=== PATIENT | female | born 1975 | race Caucasian/White ===

== ENCOUNTER 2018-04-20 23:21 | Emergency (ER) | payer SELFPAY ==
[2018-04-21 01:52] LABS: BUN/Creatinine Ratio 13; Blood Urea Nitrogen 8 mg/dL (7-17); Calcium 9.6 mg/dL (8.4-10.2); Hemolysis Index 2
[2018-04-21 01:54] LABS: Basophils # (Auto) 0.1 K/mm3 (0.0-0.1); Basophils % (Auto) 0.6 % (0.0-1.8); Eosinophils # (Auto) 0.8 K/mm3 (0.0-0.4); Eosinophils % (Auto) 7.8 % (0.0-4.3); Hematocrit 36.8 % (30.3-42.9); Hemoglobin 12.4 gm/dl (10.1-14.3); Lymphocytes # (Auto) 3.1 K/mm3 (1.2-5.4); Lymphocytes % (Auto) 30.1 % (13.4-35.0); Mean Corpuscular HGB Conc 34 % (30-34); Mean Corpuscular Hemoglobin 31 pg (28-32); Mean Corpuscular Volume 91 fl (79-97); Monocytes # (Auto) 0.6 K/mm3 (0.0-0.8); Monocytes % (Auto) 6.2 % (0.0-7.3); Platelet Count 240 K/mm3 (140-440); Red Blood Count 4.04 M/mm3 (3.65-5.03); Red Cell Distribution Width 13.2 % (13.2-15.2)
[2018-04-21 01:56] LABS: INR 0.95 (0.87-1.13); Partial Thromboplastin Time 28.3 Sec. (24.2-36.6); Thrombin Time 15.9 Sec. (15.1-19.6)
--- NOTE | 2018-04-21 02:32 | Cat Scan Report ---
FINAL REPORT PROCEDURE: CT HEAD/BRAIN WO CON TECHNIQUE: Computerized tomography of the head was performed without contrast material. HISTORY: neuro deficits < 6hrs or sx present upon awakening COMPARISON: No prior studies are available for comparison. FINDINGS: Skull and scalp: Normal. Paranasal sinuses: Normal. Ventricles and subarachnoid spaces: Normal. Cerebrum: No evidence of hemorrhage, acute infarction or mass . Cerebellum and brainstem: No evidence of hemorrhage, acute infarction or mass. Vasculature: Normal. Comments: None. IMPRESSION: Normal Examination
[2018-04-21] MEDS ORDERED: ASPIRIN PO ONE (04:12)
--- NOTE | 2018-04-21 06:10 | Emergency Department Report ---
ED General Adult HPI - General Chief complaint: Neuro Symptoms/Deficit Stated complaint: FACIAL NUMBNESS Time Seen by Provider: 04/21/18 06:07 Source: patient, EMS Mode of arrival: Stretcher Limitations: Language Barrier - History of Present Illness Initial comments: 43 year old female [place]-speaking who I have obtained a history from him in [place]. The patient states that she has had similar symptoms in the past. She admits to having problems with her teeth. According to the EMS report she was transferred for evaluation of weakness (generalized.). There is no mention of right facial twisting. The patient's chief complaint is "facial twisting" ( translated from [place]) for 3 hours. There is conflicting information on the patient's history on her triage report. There is information stating that she had weakness of her right upper extremity. The patient totally denies this. She states that her problem was strictly to twisting of her lips. She also states that she has pain in the molar area on the right and sometimes points to the left. She admits to having anxiety. She totally denies any sort of focal weakness or numbness. She simply states that her face was twisted or 3 hours. She states that she has pain in her right molar area. She is clear that this is problem that she has had more than once in the past. She states he's been admitted to the hospital for the same. She denies any headache. She denies any supplemental symptoms. She denies any facial numbness. I reviewed the EMS record. There is nothing related to facial twisting found. -: Gradual, hour(s) Location: face Radiation: non-radiation Quality: aching Consistency: constant Improves with: none Worsens with: none Associated Symptoms: denies other symptoms Treatments Prior to Arrival: none - Related Data Home Medications Medication Instructions Recorded Confirmed Last Taken Omeprazole [PriLOSEC] 40 mg PO QDAY 04/16/15 04/16/15 Unknown Oxycodone HCl/Acetaminophen 1 tab PO Q8H PRN 04/16/15 04/16/15 04/14/15 [Percocet 7.5/325 mg] Previous Rx's Medication Instructions Recorded Last Taken Type Ciprofloxacin HCl [Cipro] 500 mg PO Q12H #14 tab 08/13/14 Unknown Rx HYDROcodone/APAP 10-325 [Andrews 1 each PO Q6HR PRN #16 tablet 08/13/14 Unknown Rx 10-325 mg TAB] Ciprofloxacin HCl [Cipro] 500 mg PO Q12H #10 tab 11/16/14 Unknown Rx raNITIdine HCl [Ranitidine] 150 mg PO Q12H #60 tablet 11/16/14 Unknown Rx Famotidine [Pepcid] 20 mg PO BID #30 tablet 02/01/15 Unknown Rx HYDROcodone/APAP 5-325 [Andrews 1 each PO Q6HR PRN #14 tablet 02/01/15 Unknown Rx 5-325 mg TAB] Promethazine [Phenergan TAB] 25 mg PO Q6H PRN #20 tablet 02/01/15 Unknown Rx Ibuprofen [Motrin] 600 mg PO Q8H PRN #60 tablet 02/26/15 Unknown Rx Ondansetron [Zofran Odt] 4 mg PO Q6H #30 tab.rapdis 02/26/15 Unknown Rx Sulfamethoxazole/Trimethoprim 1 each PO BID #14 tablet 02/26/15 Unknown Rx [Bactrim Ds] traMADol [Ultram] 50 mg PO Q6HR PRN #20 tablet 02/26/15 Unknown Rx Ciprofloxacin HCl [Ciprofloxacin 500 mg PO Q12HR #20 tab 04/16/15 Unknown Rx TAB] Oxycodone HCl/Acetaminophen 1 each PO Q4-6H PRN #20 tablet 04/16/15 Unknown Rx [Percocet 10/325 mg] Promethazine [Phenergan TAB] 25 mg PO Q6HR PRN #10 tab 04/16/15 Unknown Rx Penicillin Vk [Veetids TAB] 250 mg PO QID #30 tablet 04/21/18 Unknown Rx Allergies Allergy/AdvReac Type Severity Reaction Status Date / Time Pork/Porcine Containing Allergy Hives Verified 04/16/15 10:35 Products ED Review of Systems ROS: Stated complaint: FACIAL NUMBNESS Other details as noted in HPI Constitutional: denies: chills, fever Eyes: denies: eye pain, eye discharge, vision change ENT: denies: ear pain, throat pain Respiratory: denies: cough, shortness of breath, wheezing Cardiovascular: denies: chest pain, palpitations Endocrine: no symptoms reported Gastrointestinal: denies: abdominal pain, nausea, diarrhea Genitourinary: denies: urgency, dysuria, discharge Musculoskeletal: denies: back pain, joint swelling, arthralgia Skin: denies: rash, lesions Neurological: as per HPI. denies: headache, weakness, numbness, paresthesias, confusion, abnormal gait, vertigo Psychiatric: denies: anxiety, depression Hematological/Lymphatic: denies: easy bleeding, easy bruising ED Past Medical Hx - Past Medical History Hx Hypertension: Yes Hx Kidney Stones: Yes Hx Asthma: Yes Additional medical history: heart murmur, diverticulitis, gall stones, kidney stones - Surgical History Hx Cholecystectomy: Yes Hx Appendectomy: Yes Additional Surgical History: hernia repair x 3. Cholecystectomy - Social History Smoking Status: Never Smoker Substance Use Type: None - Medications Home Medications: Home Medications Medication Instructions Recorded Confirmed Last Taken Type Ciprofloxacin HCl [Cipro] 500 mg PO Q12H #14 tab 08/13/14 Unknown Rx HYDROcodone/APAP 10-325 [Andrews 1 each PO Q6HR PRN #16 tablet 08/13/14 Unknown Rx 10-325 mg TAB] Ciprofloxacin HCl [Cipro] 500 mg PO Q12H #10 tab 11/16/14 Unknown Rx raNITIdine HCl [Ranitidine] 150 mg PO Q12H #60 tablet 11/16/14 Unknown Rx Famotidine [Pepcid] 20 mg PO BID #30 tablet 02/01/15 Unknown Rx HYDROcodone/APAP 5-325 [[place] 1 each PO Q6HR PRN #14 tablet 02/01/15 Unknown Rx 5-325 mg TAB] Promethazine [Phenergan TAB] 25 mg PO Q6H PRN #20 tablet 02/01/15 Unknown Rx Ibuprofen [Motrin] 600 mg PO Q8H PRN #60 tablet 02/26/15 Unknown Rx Ondansetron [Zofran Odt] 4 mg PO Q6H #30 tab.rapdis 02/26/15 Unknown Rx Sulfamethoxazole/Trimethoprim 1 each PO BID #14 tablet 02/26/15 Unknown Rx [Bactrim Ds] traMADol [Ultram] 50 mg PO Q6HR PRN #20 tablet 02/26/15 Unknown Rx Ciprofloxacin HCl [Ciprofloxacin 500 mg PO Q12HR #20 tab 04/16/15 Unknown Rx TAB] Omeprazole [PriLOSEC] 40 mg PO QDAY 04/16/15 04/16/15 Unknown History Oxycodone HCl/Acetaminophen 1 each PO Q4-6H PRN #20 tablet 04/16/15 Unknown Rx [Percocet 10/325 mg] Oxycodone HCl/Acetaminophen 1 tab PO Q8H PRN 04/16/15 04/16/15 04/14/15 History [Percocet 7.5/325 mg] Promethazine [Phenergan TAB] 25 mg PO Q6HR PRN #10 tab 04/16/15 Unknown Rx Penicillin Vk [Veetids TAB] 250 mg PO QID #30 tablet 04/21/18 Unknown Rx ED Physical Exam - General Limitations: Language Barrier General appearance: alert, in no apparent distress - Head Head exam: Present: atraumatic, normocephalic - Eye Eye exam: Present: normal appearance - ENT ENT exam: Present: normal exam, mucous membranes moist, other (multiple impacted and/or retained roots. Gingival reaction on the right. Tenderness to palpation.) - Neck Neck exam: Present: normal inspection. Absent: tenderness, meningismus - Respiratory Respiratory exam: Present: normal lung sounds bilaterally. Absent: respiratory distress - Cardiovascular Cardiovascular Exam: Present: regular rate, normal rhythm. Absent: systolic murmur, diastolic murmur, rubs, gallop - GI/Abdominal GI/Abdominal exam: Present: soft, normal bowel sounds. Absent: distended, tenderness, guarding, rebound, rigid - Extremities Exam Extremities exam: Present: normal inspection - Back Exam Back exam: Present: normal inspection - Neurological Exam Neurological exam: Present: alert, oriented X3, CN II-XII intact, other (patient 's NIH stroke score is 0). Absent: motor sensory deficit - Psychiatric Psychiatric exam: Present: normal affect, normal mood - Skin Skin exam: Present: warm, dry, intact, normal color. Absent: rash ED Course Vital Signs 04/21/18 00:35 Temperature 98.7 F Pulse Rate 88 Respiratory 18 Rate Blood Pressure 112/78 O2 Sat by Pulse 99 Oximetry - Reevaluation(s) Reevaluation #1: Patient's daughter very conflicting. Her neurological exam is totally normal. She is found to have impacted and carious teeth. I do not find that further evaluation for a stroke syndrome is justified at this time as an inpatient. She states that she has been admitted for similar symptoms in the past and never found to have a stroke. She was resting comfortably. She admits to having problems with anxiety. I think she is appropriate for outpatient follow- up. She'll be placed on an antibiotic for her retained roots and gingivitis. She does need a dentist. She needs to follow-up with a primary care physician. 04/21/18 06:42 ED Medical Decision Making - Lab Data Result diagrams: 04/21/18 00:44 04/21/18 00:44 Critical care attestation.: If time is entered above; I have spent that time in minutes in the direct care of this critically ill patient, excluding procedure time. ED Disposition Clinical Impression: Dentalgia, Somatic symptom disorder, mild Disposition: [id number] TO HOME OR SELFCARE Is pt being admited?: No Does the pt Need Aspirin: No Condition: Stable Instructions: Dental Caries (ED), Toothache (ED) Additional Instructions: Return if any recurrent symptoms at all. I would recommend that you follow up with her primary care provider and a dentist. A prescription for penicillin is provided as you do have signs of chronic dental infection. Prescriptions: Penicillin Vk [Veetids TAB] 250 mg PO QID #30 tablet Referrals: PRIMARY CARE, [Primary Care Provider] - 3-5 Days local, dentist [Other] - 3-5 Days [facility] [Provider Group] - 3-5 Days Time of Disposition: 06:45
[2018-04-21] MEDS ORDERED: K-DUR PO ONE (06:50)
[2018-04-21 06:58] VITALS: BP 111/70
== END 2018-04-21 06:56 | disposition home or self-care (01) ==
LOC: ED 23:21
DX: F45.1 Undifferentiated somatoform disorder (principal); K08.89 Other specified disorders of teeth and supporting structures; I10 Essential (primary) hypertension; J45.909 Unspecified asthma, uncomplicated; F41.9 Anxiety disorder, unspecified; Z90.49 Acquired absence of other specified parts of digestive tract; Z79.899 Other long term (current) drug therapy; Z91.018 Allergy to other foods
CPT/HCPCS: 36415; 70450; 80048; 84484; 84703; 85025; 85610; 85670; 85730; 93005; 93010